=== PATIENT | female | born 2005 | race African-American/Black ===

== ENCOUNTER 2023-04-23 16:04 | Emergency (ER) | payer OTHER, SELFPAY ==
[2023-04-23 16:13] VITALS: BP 121/67; PULSE 70; RESP 20; TEMP 36.7; O2SAT 97
--- NOTE | 2023-04-23 17:05 | ED.HA ---
HPI - Headache General Chief Complaint: Headache Stated Complaint: head pain Time Seen by Provider: 04/23/23 16:48 Source: patient and RN notes reviewed Mode of arrival: ambulatory Limitations: no limitations History of Present Illness HPI Narrative: Patient presents today complaining of chronic migraines for the past several years. She has seen her PCP couple of times and has been told to take Excedrin migraine and Tylenol, which she states has not been helping. Occasional photophobia, but none at this time. States her migraines have become more frequent and are now daily and last for an hour or 2. Denies nausea, vomiting, numbness or tingling, vision changes. Related Data Allergies Allergy/AdvReac Type Severity Reaction Status Date / Time gadobenic acid Allergy Intermediate Vomiting Verified 04/23/23 16:47 [From contrast - MRI] iodine Allergy Intermediate Vomiting Verified 04/23/23 16:47 iohexol Allergy Intermediate Vomiting Verified 04/23/23 16:47 [From contrast - CT, X-RAY] Review of Systems Review of Systems: CONSTITUTIONAL: Denies body aches, fever, chills, or sweats. EYES: Denies visual changes, redness, or discharge. ENT: Denies rhinorrhea, congestion, sore throat, or otalgia. CARDIOVASCULAR: Denies chest pain, palpitations, or edema. RESPIRATORY: Denies cough or dyspnea. GASTROINTESTINAL: Denies abdominal pain, nausea, vomiting, or diarrhea. GENITOURINARY: Denies dysuria or hematuria. SKIN: Denies rash, itching, or wounds. MUSCULOSKELETAL: Denies back pain, joint pain, or myalgia. NEUROLOGIC: Denies numbness, tingling, or weakness.+ headache PSYCH: Denies depression or anxiety. [facility] Past Medical History Medical History (Updated 04/23/23 @ 17:08 by Sheila Estrada, [facility], ) Migraines Comments At time of signature, I have reviewed and agree with nursing past medical, surgical, social and family history unless otherwise noted. Please see nursing chart for further information. There is no relevant family history pertinent to the presenting complaint Exam Narrative: GENERAL: Well-appearing, well-nourished, and in no acute distress. HEAD: Normocephalic, atraumatic. EYES: EOMI. PERRL. No redness or drainage. Conjunctivae normal. ENT: Mucous membranes pink and moist. NECK: Normal AROM. Supple. No lymphadenopathy. CHEST: No respiratory distress. Clear to auscultation. HEART: Regular rate and rhythm. No murmur appreciated. Normal peripheral pulses. EXTREMITIES: Normal range of motion. No edema. SKIN: Warm, dry, no rash. Capillary refill normal. Normal skin turgor. NEURO: No focal deficits. Alert and oriented x3. Gait steady. PSYCH: Normal affect. No signs of depression or anxiety. Course Course Level of Care: Express Care Visit Vital Signs Vital signs: Vital Signs Temperature 98.1 F 04/23/23 16:13 Pulse Rate 70 04/23/23 16:13 Respiratory Rate 20 04/23/23 16:13 Blood Pressure 121/67 04/23/23 16:13 Pulse Oximetry 97 04/23/23 16:13 Temperature 98.1 F 04/23/23 16:13 Pulse Rate 70 04/23/23 16:13 Respiratory Rate 20 04/23/23 16:13 Blood Pressure 121/67 04/23/23 16:13 Pulse Oximetry 97 04/23/23 16:13 Reviewed. Pt has been instructed to follow up with her PCP regarding her elevated blood pressure today. MDM - Headache MDM Narrative Medical decision making narrative: Will try patient on a course of diclofenac for headaches. Instructed to start a headache journal and schedule a follow-up visit with her PCP. Patient agreeable to plan. Differential Diagnosis Differential diagnosis: Likely migraine, tension headache and headache Critical Care Time Critical Care Time Critical Care Time: No Discharge Plan Discharge Clinical Impression: Migraine Qualifiers: Migraine type: other Status migrainosus presence: without status migrainosus Intractability: not intractable Qualified Code(s): G43.809 - Other migraine, not intractable, without s
== END 2023-04-23 17:14 | disposition home or self-care (01) ==
PROVIDERS: Emergency Provider Nurse Practitioner; PCP Emergency Medicine
DX: G43.809 Other migraine, not intractable, without status migrainosus (principal)
CPT/HCPCS: 99203; G0463